=== PATIENT | female | born 1985 | race Caucasian/White ===

== ENCOUNTER → 2019-01-27 | Outpatient (CLI) | payer OTHER ==
--- NOTE | 2019-01-27 11:18 | REP ---
DUPLEX DOPPLER EVALUATION CELIAC ARTERY: Real-time ultrasound evaluation and duplex Doppler interrogation of the celiac and superior mesenteric artery is performed to evaluate for possible median arcuate ligament syndrome. Peak systolic velocity of the abdominal aorta is 87.5 cm/s. Celiac artery angle in inspiration is 29 degrees and expiration 37 degrees. Peak systolic velocity in the celiac artery proximally with inspiration is 104.5 cm/s, with expiration 122.4 cm/s. Peak systolic velocity on the proximal superior mesenteric artery is 120 cm/s with triphasic waveform. Superior mesenteric artery angle with the aorta is 31 degrees. IMPRESSION: No evidence of celiac or superior mesenteric artery stenosis. No sonographic evidence of median arcuate ligament syndrome. Electronically Signed by Ean Dickerson MD 01/27/2019 12:46 P
== END ==
LOC: M RAD 10:03
PROVIDERS: ATTEND Surgery Vascular Surgery
DX: R10.11 Right upper quadrant pain (principal)